=== PATIENT | male | born 1975 | race American Indian/Alaskan Native ===

== ENCOUNTER 2016-12-13 14:03 | Emergency (ER) | payer OTHER ==
[2016-12-13 15:33] LABS: Alanine Aminotransferase 61 units/L (7-56); Albumin 4.8 g/dL (3.9-5); Albumin/Globulin Ratio 1.5 %; Alkaline Phosphatase 109 units/L (35-129); Anion Gap 22 mmol/L; Blood Urea Nitrogen 15 mg/dL (9-20); Calcium 9.6 mg/dL (8.4-10.2); Carbon Dioxide 24 mmol/L (22-30); Chloride 99.2 mmol/L (98-107); Glucose 162 mg/dL (75-100); Potassium 4.4 mmol/L (3.6-5.0); Sodium 141 mmol/L (137-145); Total Protein 8.1 g/dL (6.3-8.2)
[2016-12-13 15:44] LABS: Basophils % (Auto) 0.6 % (0.0-1.8); Eosinophils % (Auto) 1.6 % (0.0-4.3); Hematocrit 42.3 % (35.5-45.6); Mean Corpuscular HGB Conc 33 % (32-34); Mean Corpuscular Hemoglobin 29 pg (28-32); Mean Corpuscular Volume 88 fl (84-94); Platelet Count 253 K/mm3 (140-440); Red Blood Count 4.81 M/mm3 (3.65-5.03); Red Cell Distribution Width 13.6 % (13.2-15.2); White Blood Count 6.9 K/mm3 (4.5-11.0)
[2016-12-13 16:07] LABS: Urine Drugs of Abuse Note Disclamer
[2016-12-13 16:33] LABS: Bilirubin,Urine NEG (Negative); Blood,Urine NEG (Negative); Ketones,Urine NEG (Negative); Leukocyte Esterase,Urine NEG (Negative); Mucus,Urine FEW /HPF; Nitrite,Urine NEG (Negative); Protein,Urine <15 mg/dL mg/dL (Negative); Urobilinogen,Urine < 2.0 mg/dL (<2.0)
--- NOTE | 2016-12-13 17:53 | Emergency Department Report ---
HPI - General Chief Complaint: Syncope Time Seen by Provider: 12/13/16 17:12 - HPI HPI: Patient states he was at work today when he started to feel dizzy, patient stated his blood pressure was high and he at his bus to leave his job. He states he started feeling bad prior to going to work this morning after eating some sausage, he immediately felt nauseous but he proceeded to go to work anyway. Patient states he moves a lot at his work and lift heavy materials. Patient states while making his way to the ER he felt very lightheaded like he was going to pass out but didn't pass out. While in the ER patient states these condition continues to improve and he now feels much improved back to his baseline. Currently patient denies any chest pain, shortness of breath, nausea , vomiting. His BP is back to his baseline. ED Past Medical Hx - Past Medical History Previous Medical History?: Yes Hx Hypertension: Yes - Surgical History Past Surgical History?: Yes Hx Cholecystectomy: Yes - Family History Family history: hypertension - Social History Smoking Status: Never Smoker Substance Use Type: Alcohol - Medications Home Medications: Home Medications Medication Instructions Recorded Confirmed Last Taken Type amLODIPine [Norvasc] 5 mg PO DAILY #30 tablet 12/13/16 Unknown Rx ED Review of Systems ROS: Stated complaint: SYNCOPE EPISODE Other details as noted in HPI Comment: All other systems reviewed and negative ENT: denies: ear pain, throat pain Respiratory: denies: cough, shortness of breath, wheezing Cardiovascular: as per HPI Gastrointestinal: denies: abdominal pain, nausea, diarrhea Neurological: other (dizziness) Physical Exam - Physical Exam Vital Signs: Vital Signs 12/13/16 12/13/16 14:18 17:00 Temperature 98.6 F Pulse Rate 113 H Respiratory 18 20 Rate Blood Pressure 150/100 O2 Sat by Pulse 98 Oximetry Physical Exam: Physical Exam: - General Limitations: No Limitations General appearance: alert, in no apparent distress, - Head Head exam: Present: atraumatic, normocephalic - Eye Eye exam: Present: normal appearance - ENT ENT exam: Present: mucous membranes moist - Neck Neck exam: Present: normal inspection - Respiratory Respiratory exam: Present: normal lung sounds bilaterally. Absent: respiratory distress - Cardiovascular Cardiovascular Exam: Present: normal rhythm, normal rate. Absent: systolic murmur, diastolic murmur, rubs, gallop - GI/Abdominal GI/Abdominal exam: Present: soft, normal bowel sounds - Extremities Exam Extremities exam: Present: normal inspection - Back Exam Back exam: Present: normal inspection - Neurological Exam Neurological exam: Present: alert, oriented X3 - Psychiatric Psychiatric exam: normal affect and mood - Skin Skin exam: Present: warm, dry, intact, normal color. Absent: rash ED Course Vital Signs 12/13/16 12/13/16 14:18 17:00 Temperature 98.6 F Pulse Rate 113 H Respiratory 18 20 Rate Blood Pressure 150/100 O2 Sat by Pulse 98 Oximetry ED Medical Decision Making - Lab Data Result diagrams: 12/13/16 14:52 12/13/16 14:52 Critical care attestation.: If time is entered above; I have spent that time in minutes in the direct care of this critically ill patient, excluding procedure time. ED Disposition Clinical Impression: Dizziness, Labile blood pressure Disposition: [id number]-01 TO HOME OR SELFCARE Is pt being admited?: No Does the pt Need Aspirin: No Condition: Stable Instructions: Hypertension (ED), Dizziness (ED) Prescriptions: amLODIPine [Norvasc] 5 mg PO DAILY #30 tablet Referrals: PRIMARY CARE, [Primary Care Provider] - 3-5 Days
[2016-12-13 19:02] VITALS: BP 134/89
== END 2016-12-13 19:07 | disposition home or self-care (01) ==
LOC: ED 14:03
DX: I10 Essential (primary) hypertension (principal); R42 Dizziness and giddiness
CPT/HCPCS: 36415; 80053; 80307; 81001; 82140; 82962; 83735; 84443; 84484; 85025; 93005; 93010; 99284; G0480; 80320